=== PATIENT | male | born 1960 ===

== ENCOUNTER 2018-11-05 08:25 | Day surgery (SDC) | payer MEDICARE ==
[2018-11-05] MEDS ORDERED: Lactated Ringer's 500 ML IV ONE (08:39)
[2018-11-05] MEDS ORDERED: Propofol 10 mg/ml Inj (20 ML) ONE (09:19)
[2018-11-05 10:02] VITALS: O2SAT 97
[2018-11-05 10:13] VITALS: BP 123/83; PULSE 80; RESP 14; TEMP 97
== END 2018-11-05 10:41 | disposition home or self-care (01) ==
LOC: H.ENDO 08:25
PROVIDERS: ATTEND Internal Medicine Gastroenterology
DX: Z85.048 Personal history of other malignant neoplasm of rectum, rectosigmoid junction, and anus (principal); I10 Essential (primary) hypertension; E03.9 Hypothyroidism, unspecified; K64.8 Other hemorrhoids; K62.89 Other specified diseases of anus and rectum
CPT/HCPCS: 45380; 88305; J2001; J2704; J7120